=== PATIENT | female | born 1955 | race Two or more races ===

== ENCOUNTER → 2024-10-31 | Outpatient (CLI) | payer MEDICARE, SELFPAY ==
[2024-11-08 06:33] LABS: IgG, Serum* 782 mg/dL (600-1540); IgM, Serum* 37 mg/dL (50-300)
== END | disposition home or self-care (01) ==
LOC: COPL 15:20
PROVIDERS: PCP Internal Medicine Hospice and Palliative Medicine; Referring Provider Specialist; Visit Provider Specialist
DX: E78.5 Hyperlipidemia, unspecified (principal); E03.9 Hypothyroidism, unspecified
CPT/HCPCS: 36415; 82784; 87497